=== PATIENT | male | born 1990 | race Caucasian/White ===

== ENCOUNTER 2020-04-25 17:47 | Emergency (ER) | payer MEDICAID, SELFPAY ==
[~2020-04-25] VITALS: Ht 180.3 cm; Wt 74.8 kg
[2020-04-25 17:49] VITALS: Ht 180.3 cm; Wt 74.8 kg
[2020-04-25 19:35] VITALS: BP 130/73
== END 2020-04-25 19:35 | disposition home or self-care (01) ==
LOC: ED 17:47
DX: U07.1 COVID-19 (principal)
CPT/HCPCS: U0003